=== PATIENT | male | born 1970 | race Caucasian/White ===

== ENCOUNTER 2021-02-18 13:02 | Outpatient (CLI) | payer BC, SELFPAY ==
--- NOTE | ~2021-02-18 | XR_ITS ---
XR knee LT 3V DATE: 02/18/2021 13:51 INDICATION: Left knee pain TECHNIQUE: 4 views COMPARISON: None FINDINGS: There is enthesopathy at the superior pole of the patella at the quadriceps tendon insertio n. There is slight periarticular spurring of the patella consistent with osteoarthritis. Medial and lateral compartment joint spaces appear well preserved. No radiopaque intra-articular loos e body or chondrocalcinosis. There is diffuse osteopenia. No fracture or dislocation or joint effusion. No periosteal reaction or bone destruction. IMPRESSION: Slight patellofemoral osteoarthritis Osteopenia Reviewed, dictated and finalized at location A.
--- NOTE | ~2021-02-18 | XR_ITS ---
XR hip LT 2V w AP pelvis DATE: 02/18/2021 13:51 INDICATION: Left hip pain TECHNIQUE: AP pelvis. AP and lateral views of left hip COMPARISON: None FINDINGS: No pelvic fracture or bone destruction. The pubic symphysis and sacroiliac joints are intac t. No fracture or dislocation, avascular necrosis or bone destruction of the left hip. IMPRESSION: No significant abnormality Reviewed, dictated and finalized at location A. IMPRESSION: No significant abnormality
== END 2021-02-18 13:03 | disposition home or self-care (01) ==
LOC: ANHIMG 13:18
PROVIDERS: PCP Family Medicine; Visit Provider Family Medicine
DX: M25.552 Pain in left hip (principal); M17.12 Unilateral primary osteoarthritis, left knee
CPT/HCPCS: 73502; 73562